=== PATIENT | female | born 1945 | race Caucasian/White ===

== ENCOUNTER 2016-09-13 15:38 | Outpatient (CLI) | payer MEDICARE, OTHER ==
--- NOTE | 2016-09-13 17:58 | XRAY Report ---
EXAMS: 1. Right Foot Radiography 2. Left Foot Radiography EXAM DATE: 09/13/2016 04:11 PM. CLINICAL HISTORY: Progressive bilateral foot pain and edema. COMPARISON: None. TECHNIQUE: 3 views each foot. FINDINGS: Right: Bones: Bones are osteopenic. Slight cortical thickening and irregularity at the proximal aspect of th e second metatarsal which may be from previous old fracture injury. No acute fracture or bone lesions . Small calcaneal enthesophytes. Joints: Normal. No subluxations. Soft Tissues: Normal. No soft tissue swelling. Left: Bones: Bones are osteopenic. Small calcaneal enthesophytes. No acute fracture or bone lesions. Joints: Mild changes at the first interphalangeal and first metatarsophalangeal joints. Soft Tissues: Normal. No soft tissue swelling. IMPRESSION: 1. Osteopenia. 2. Slight cortical thickening and irregularity at the proximal aspect of the right second metatarsal which may be from previous old fracture injury. 3. Small bilateral calcaneal enthesophytes. 4. Mild arthritic changes at the left first interphalangeal and metatarsophalangeal joints. [facility] Referring Provider Line: [phone] SITE ID: [id number]
== END 2016-09-13 15:39 | disposition home or self-care (01) ==
LOC: DI 15:38
PROVIDERS: ATTEND Podiatrist
DX: M19.072 Primary osteoarthritis, left ankle and foot (principal); M19.071 Primary osteoarthritis, right ankle and foot; M77.32 Calcaneal spur, left foot; M77.31 Calcaneal spur, right foot; M85.872 Other specified disorders of bone density and structure, left ankle and foot; M85.871 Other specified disorders of bone density and structure, right ankle and foot

== ENCOUNTER 2017-12-17 14:26 | Outpatient (CLI) | payer MEDICARE, OTHER ==
[2017-12-17 17:28] LABS: BASOPHILS % (AUTO) 0.3 %; EOSINOPHILS % (AUTO) 0.9 %; HGB - HEMOGLOBIN 13.2 g/dL (12.0-16.0); LYMPHOCYTES % (AUTO) 35.3 %; MEAN CORPUSCULAR HEMOGLOBIN 28.6 pg (27.0-31.0); MEAN CORPUSCULAR HGB CONC 33.3 g/dL (32.0-36.0); MEAN CORPUSCULAR VOLUME 85.9 fL (81.0-99.0); MEAN PLATELET VOLUME 7.1 fL (7.9-10.8); MONOCYTES % (AUTO) 11.2 %; NEUTROPHILS % (AUTO) 52.3 %; PLT - PLATELET COUNT 177 10^3/uL (130-450); RED BLOOD COUNT 4.63 10^6/uL (4.20-5.40); RED CELL DISTRIBUTION WIDTH 14.7 % (12.0-15.0)
[2017-12-17 18:03] LABS: ALBUMIN 3.9 g/dL (3.2-5.5); ALBUMIN/GLOBULIN RATIO 1.2 (1.0-2.2); ALKALINE PHOSPHATASE 93 IU/L (42-121); ALT ALANINE AMINOTRANSFERASE 13 IU/L (10-60); AST ASPARTATE AMINOTRANSFERASE 18 IU/L (10-42); BILIRUBIN,TOTAL 0.6 mg/dL (0.2-1.0); BUN - BLOOD UREA NITROGEN 7 mg/dL (6-20); CARBON DIOXIDE - CO2 28 mmol/L (21-32); CHLORIDE 94 mmol/L (101-111); CHOL/HDL RATIO 2.7 (<4.4); CHOLESTEROL 197 mg/dL; CREATININE 0.8 mg/dL (0.4-1.0); GFR - MDRD 71 (>89); GLUCOSE 91 mg/dL (70-100); HDL CHOLESTEROL 74 mg/dL; LDL CHOLESTEROL,CALCULATED 111 mg/dL; LDL/HDL RATIO 1.5 (<4.4); SODIUM 130 mmol/L (135-145); TOTAL PROTEIN 7.1 g/dL (6.7-8.2); VLDL CHOLESTEROL 12 mg/dL
[2017-12-17 18:34] LABS: ABNORMAL LYMPHS % (MANUAL) 0 %; BAND NEUTROPHILS % (MANUAL) 0 %
[2017-12-17 20:08] LABS: LYMPHOCYTES # (MANUAL) 0.7 10^3/uL (1.5-3.5); LYMPHOCYTES % (MANUAL) 33 %; MONOCYTES # (MANUAL) 0.2 10^3/uL (0.0-1.0); NEUTROPHILS # (MANUAL) 1.1 10^3/uL (1.5-6.6); NEUTROPHILS % (MANUAL) 55 %; PLATELET ESTIMATE, MANUAL NORMAL (130-450,000) (NORMAL); PLATELET MORPHOLOGY NORMAL APPEARANCE (NORMAL); RBC MORPHOLOGY (MULTIPLE) NORMAL APPEARANCE (NORMAL)
== END 2017-12-17 14:27 | disposition home or self-care (01) ==
LOC: LAB.F 14:26
PROVIDERS: ATTEND Nurse Practitioner Family
DX: I10 Essential (primary) hypertension (principal); Z13.220 Encounter for screening for lipoid disorders
CPT/HCPCS: 36415; 80053; 80061; 83721; 84443; 85025

== ENCOUNTER 2018-06-28 16:44 | Emergency (ER) | payer MEDICARE, OTHER ==
[2018-06-28] MEDS ORDERED: TRANEXAMIC ACID 1,000 MG/10 ML VIAL NAS STA (18:04)
--- NOTE | 2018-06-28 18:08 | ED Physician Documentation ---
History of Present Illness - Stated complaint Stated Complaint: GLF - Chief complaint Chief Complaint: Trauma Hd/Nk - History obtained from History obtained from: Patient, Family - History of Present Illness Timing: How many hours ago (3) Pain level max: 4 Pain level now: 3 Improved by: nothing Worsened by: palpation - Additonal information Additional information: 72-year-old female presents to the emergency department after a trip and fall in her driveway, landing on her face. Complained of pain to the nose as well as a laceration. No loss of consciousness. Does have a slight headache. No vomiting. Not on blood thinners, but her nose is continuing to bleed. Review of Systems Constitutional: denies: Fever, Chills Respiratory: denies: Cough GI: denies: Nausea, Vomiting, Diarrhea Skin: denies: Rash Musculoskeletal: denies: Neck pain, Back pain Neurologic: denies: Headache PD PAST MEDICAL HISTORY - Past Medical History Past Medical History: Yes Musculoskeletal: Osteoarthritis Other Past Medical History: [place]'s right side - Past Surgical History Past Surgical History: Yes Ortho: Other - Present Medications Home Medications: Ambulatory Orders Medication Instructions Recorded Confirmed Cholecalciferol (Vitamin D3) 1,000 unit PO DAILY 06/28/18 06/28/18 [Vitamin D3] Lisinopril 10 mg PO DAILY 06/28/18 06/28/18 Meloxicam 7.5 mg PO DAILY 06/28/18 06/28/18 Thioridazine HCl 100 mg PO DAILY 06/28/18 06/28/18 oxyCODONE [Roxicodone] 5 mg PO ONCE 06/28/18 06/28/18 - Allergies Allergies/Adverse Reactions: Allergies Allergy/AdvReac Type Severity Reaction Status Date / Time morphine Allergy Hallucinati Verified 06/28/18 16:51 ons - Social History Does the pt smoke?: Yes Smoking Status: Former smoker Does the pt drink ETOH?: No Does the pt have substance abuse?: No - Immunizations Immunizations are current?: Yes Immunizations: TDAP current <10years PD ED PE NORMAL - Vitals Vital signs reviewed: Yes - General General: Alert and oriented X 3, No acute distress, Well developed/nourished - HEENT HEENT: PERRL, Moist mucous membranes, Other (Tender palpation over the bridge of the nose. Bleeding from the right nare. There is a laceration on the bridge of the nose, approximately 1.5 cm) - Neck Neck: Supple, no meningeal sign - Cardiac Cardiac: RRR, Strong equal pulses - Respiratory Respiratory: No respiratory distress, Clear bilaterally - Abdomen Abdomen: Soft, Non tender, Non distended - Derm Derm: Warm and dry - Extremities Extremities: No tenderness to palpate, Normal ROM s pain - Neuro Neuro: Alert and oriented X 3, poultry culler 2-12 intact, No motor deficit, No sensory deficit, Normal speech - Psych Psych: Normal mood, Normal affect Results - Vitals Vitals: Vital Signs - 24 hr 06/28/18 06/28/18 16:47 18:51 Temperature 36.6 C Heart Rate 112 H 65 Respiratory 18 16 Rate Blood Pressure 120/78 154/59 H O2 Saturation 94 96 Oxygen O2 Source Room air - Rads (name of study) Head CT Radiology: Prelim report reviewed, EMP read contemporaneously, See rad report (No acute intracranial abnormality) Maxillofacial CT Radiology: Prelim report reviewed, EMP read contemporaneously, See rad report (Bilateral nasal bone fractures with comminution and displacement/depression, left greater than right. Mildly displaced and overriding nasal bony septal fracture. Nasal/paranasal soft tissue swelling with small foci of subcutaneous gas near and below the nasal bone fractures consistent with laceration. Mild opacification with in the paranasal sinuses) Procedures - Laceration (location) Nasal laceration Length in cm: 1.5 Wound type: Stellate, Into subcut fat, Clean Neurovascular status: Sensory intact Wound Preparation: Irrigated copiously NS, Wound explored, To the base. No: FB identified Skin layer closure: Dermabond Other: Patient tolerated well, No complications, Neurovascular intact, Tetanus UTD Complexity: Simple PD MEDICAL DECISION MAKING - ED course Complexity details: reviewed results, re-evaluated patient, considered differential, d/w patient ED course: 72-year-old female presents after a fall today. She has nasal bone fractures. Bleeding controlled from the nose. Tranexamic acid as well as lidocaine with epinephrine were Atomized in the nose. Laceration repaired after careful cleaning. Warnings of infection and instructions on wound care given at bedside. Also counseled on how to minimize scarring. Patient and family counseled regarding signs and symptoms for which I believe and urgent re- evaluation would be necessary. Patient with good understanding of and agreement to plan and is comfortable going home at this time This document was made in part using voice recognition software. While efforts are made to proofread this document, sound alike and grammatical errors may occur. Departure - Departure Disposition: 01 Home, Self Care Clinical Impression: Nasal bones, closed fracture Qualifiers: Encounter type: initial encounter Qualified Code(s): S02.2XXA - Fracture of nasal bones, initial encounter for closed fracture Nasal laceration Qualifiers: Encounter type: initial encounter Qualified Code(s): S01.21XA - Laceration without foreign body of nose, initial encounter Condition: Good Instructions: ED Head Injury Closed, ED Fx Nose W Lac Skin Glue Follow-Up: SEAN CHANEL MD [Primary Care Provider] - Within 1 week Comments: do not blow your nose for the next 24-48 hours. Return if you worsen. The glue will dissolve on its own. Follow-up with your doctor for further care. Return if you notice redness, swelling or drainage from the wound. Discharge Date/Time: 06/28/18 19:29
--- NOTE | 2018-06-28 19:04 | CT Report ---
Reason: fall, nasal/facial injury Procedure Date: 06/28/2018 Accession Number: [id number] / [id number] Procedure: CT - HEAD WO CPT Code: FULL RESULT: EXAM: CT HEAD EXAM DATE: 06/28/2018 06:26 PM. CLINICAL HISTORY: Fall, nasal/facial injury. COMPARISON: None. TECHNIQUE: Multiaxial CT images were obtained from the foramen magnum to the vertex. Reformats: Sagittal and coronal. IV contrast: None. In accordance with CT protocol optimization, one or more of the following dose reduction techniques were utilized for this exam: automated exposure control, adjustment of mA and/or KV based on patient size, or use of iterative reconstructive technique. FINDINGS: Parenchyma: No intraparenchymal hemorrhage. No evidence of mass, midline shift, or CT findings of acute infarction. Denis-white differentiation is distinct. Extraaxial Spaces: Normal for age. No subdural or epidural collections identified. Ventricles: The ventricles and cortical sulci are within normal range for the patient's age. Sinuses and orbits: Mild opacification with an some partially demonstrated ethmoid air cells bilaterally and some lobulated mixed density within the right sphenoid sinus. Bones: No calvarial fracture is demonstrated. Refer to the maxillofacial CT report from today for additional findings. Other: None. IMPRESSION: 1. No acute intracranial abnormality demonstrated. 2. Refer to the maxillofacial CT report from today for additional findings. [facility]
--- NOTE | 2018-06-28 19:12 | CT Report ---
Reason: fall, nasal/facial injury Procedure Date: 06/28/2018 Accession Number: [id number] / [id number] Procedure: CT - MAXILLOFACIAL WO CPT Code: FULL RESULT: EXAM: CT MAXILLOFACIAL WITHOUT CONTRAST EXAM DATE: 06/28/2018 06:26 PM. CLINICAL HISTORY: Fall, nasal/facial injury. COMPARISONS: None. TECHNIQUE: Thin-section axial images were acquired of the face without contrast. Post-processing: Coronal and sagittal reformats. Other: None. In accordance with CT protocol optimization, one or more of the following dose reduction techniques were utilized for this exam: automated exposure control, adjustment of mA and/or KV based on patient size, or use of iterative reconstructive technique. FINDINGS: Soft Tissue: Nasal/paranasal facial soft tissue swelling demonstrated with some soft tissue gas adjacent to and below the level of the nasal bones compatible with laceration. Orbits: Symmetric and unremarkable. Bones: Bilateral nasal bone fractures with the comminution and displacement/depression, left greater than right. There is a mildly displaced and overlapping fracture of the bony nasal septum. The anterior maxillary spine appears intact. No other definite fractures. Partial demonstration of degenerative disk and degenerative facet disease of the cervical spine. Temporomandibular Joints: Bilateral TMJ degenerative disease. No dislocation. Sinuses: Mild partial opacification of some ethmoid air cells bilaterally. Mild right and minimal left maxillary sinus peripheral soft tissue thickening. Nodular secretions within the anterior right sphenoid sinus. No bethanie sinus layering fluid. Other: None. IMPRESSION: 1. Bilateral nasal bone fractures with comminution and displacement/depression, left greater than right. 2. Mildly displaced and overriding nasal bony septal fracture. 3. Nasal/paranasal soft tissue swelling with small foci of soft tissue gas near and below the nasal bone fractures consistent with laceration. 4. Mild opacification within some paranasal sinuses. [facility]
[2018-06-28 19:17] VITALS: BP 154/59
== END 2018-06-28 19:29 | disposition home or self-care (01) ==
LOC: ED 16:44
DX: S02.2XXA Fracture of nasal bones, initial encounter for closed fracture (principal); S01.21XA Laceration without foreign body of nose, initial encounter; W01.0XXA Fall on same level from slipping, tripping and stumbling without subsequent striking against object, initial encounter; Y93.01 Activity, walking, marching and hiking; Y92.008 Other place in unspecified non-institutional (private) residence as the place of occurrence of the external cause; Z87.891 Personal history of nicotine dependence
CPT/HCPCS: 12011; 70450; 70486; 99283; 99284

== ENCOUNTER 2020-03-17 15:36 | Emergency (ER) | payer MEDICARE, OTHER ==
--- NOTE | 2020-03-17 15:54 | ED Physician Documentation ---
PD HPI URI - Stated complaint Stated Complaint: SOA/SHAKES/FEVER - Chief complaint Chief Complaint: General - History obtained from History obtained from: Patient - History of Present Illness Timing - onset: Yesterday Timing details: Abrupt onset, Still present Associated symptoms: Fever, Chills, Nasal congestion, Other (dysuria). No: Sore throat, Dry cough, Hemoptysis, Dyspnea Contributing factors: No: Sick contact, Immunocompromised, COPD / asthma Similar symptoms before: Has not had sx before Recently seen: Clinic (seen at [facility] today and referred to ER for further testing.) Review of Systems Constitutional: reports: Fever (since yesterday), Chills, Myalgias Nose: reports: Congestion. denies: Rhinorrhea / runny nose Throat: denies: Sore throat Cardiac: denies: Chest pain / pressure Respiratory: denies: Dyspnea, Cough GI: denies: Nausea, Vomiting, Diarrhea : reports: Dysuria (for couple days), Frequency Skin: denies: Rash Neurologic: reports: Generalized weakness. denies: Near syncope, Confused, Altered mental status, Headache PD PAST MEDICAL HISTORY - Past Medical History Cardiovascular: None Respiratory: None Neuro: None Endocrine/Autoimmune: None Musculoskeletal: Osteoarthritis - Past Surgical History Past Surgical History: Yes Ortho: Other - Present Medications Home Medications: Ambulatory Orders Medication Instructions Recorded Confirmed Cholecalciferol (Vitamin D3) 1,000 unit PO DAILY 06/28/18 06/28/18 [Vitamin D3] Meloxicam 7.5 mg PO DAILY 06/28/18 06/28/18 Thioridazine HCl 100 mg PO DAILY 06/28/18 06/28/18 lisinopriL [Lisinopril] 10 mg PO DAILY 06/28/18 06/28/18 oxyCODONE [Roxicodone] 5 mg PO ONCE 06/28/18 06/28/18 Cephalexin [Keflex] 500 mg PO Q6H #28 capsule 03/17/20 Potassium Chloride 10 meq PO DAILY #15 tablet.er 03/17/20 - Allergies Allergies/Adverse Reactions: Allergies Allergy/AdvReac Type Severity Reaction Status Date / Time morphine Allergy Hallucinati Verified 03/17/20 15:47 ons - Living Situation Living Situation: reports: Alone Living Arrangement: reports: Assisted living - Social History Does the pt smoke?: Yes Smoking Status: Former smoker Does the pt drink ETOH?: No Does the pt have substance abuse?: No - Immunizations Immunizations are current?: Yes Immunizations: TDAP current <10years PD ED PE NORMAL - Vitals Vital signs reviewed: Yes (febrile and mild tachycardia) - General General: Alert and oriented X 3, No acute distress, Well developed/nourished - HEENT HEENT: Ears normal, Moist mucous membranes, Pharynx benign - Neck Neck: Supple, no meningeal sign, No adenopathy - Cardiac Cardiac: RRR, No murmur - Respiratory Respiratory: Clear bilaterally - Abdomen Abdomen: Soft, Non tender, No organomegaly - Female Female : Deferred - Rectal Rectal: Deferred - Back Back: Other (mild left CVA tenderness) - Derm Derm: Normal color, Warm and dry - Extremities Extremities: No edema, No calf tenderness / cord - Neuro Neuro: Alert and oriented X 3, No motor deficit, Normal speech Results - Vitals Vitals: Vital Signs - 24 hr 03/17/20 03/17/20 03/17/20 15:41 16:39 18:02 Temperature 39.1 C H 37.1 C Heart Rate 114 H 80 85 Respiratory 19 18 18 Rate Blood Pressure 126/58 L 117/93 H 132/62 H O2 Saturation 95 95 95 Oxygen O2 Source Room air - Labs Labs: Laboratory Tests 03/17/20 03/17/20 03/17/20 16:17 16:17 16:17 WBC 6.4 RBC 4.53 Hgb 12.6 Hct 39.3 MCV 86.8 MCH 27.8 MCHC 32.1 RDW 13.7 Plt Count 192 MPV 8.6 Neut # (Auto) Not Reportable Lymph # (Auto) Not Reportable Talbot # (Auto) Not Reportable Eos # (Auto) Not Reportable Baso # (Auto) Not Reportable Absolute Nucleated RBC Not Reportable Total Counted 100 Band Neuts % (Manual) 10 Reactive Lymphs % (Man) 1 Abnorm Lymph % (Manual) 0 Nucleated RBC % Not Reportable Neutrophils # (Manual) 5.3 Lymphocytes # (Manual) 0.1 L Monocytes # (Manual) 1.0 Eosinophils # (Manual) 0.0 Basophils # (Manual) 0.0 Differential Comment MANUAL DIFFERENTIAL Platelet Estimate NORMAL (130-450,000) Platelet Morphology NORMAL APPEARANCE RBC Morph Micro Appear NORMAL APPEARANCE Sodium 125 L Potassium 4.3 Chloride 91 L Carbon Dioxide 24 Anion Gap 10.0 BUN 17 Creatinine 1.1 H Estimated GFR (MDRD) 49 L Glucose 153 H Lactic Acid 0.9 Calcium 9.0 Total Bilirubin 0.9 AST 16 ALT 15 Alkaline Phosphatase 78 Total Protein 6.9 Albumin 3.6 Globulin 3.3 Albumin/Globulin Ratio 1.1 Urine Color Urine Clarity Urine pH Ur Specific [place] Urine Protein Urine Glucose (UA) Urine Ketones Urine Occult Blood Urine Nitrite Urine Bilirubin Urine Urobilinogen Ur Leukocyte Esterase Urine RBC Urine WBC Ur Squamous Epith Cells Urine Bacteria Urine Culture Comments Nasal Adenovirus (PCR) Nasal B. parapertussis DNA (PCR) Nasal Coronavir 229E PCR Nasal Coronavir HKU1 PCR Nasal Coronavir NL63 PCR Nasal Coronavir OC43 PCR Nasal Enterovir/Rhinovir PCR Nasal Influenza B PCR Nasal Influenza A PCR Nasal Parainfluen 1 PCR Nasal Parainfluen 2 PCR Nasal Parainfluen 3 PCR Nasal Parainfluen 4 PCR Nasal RSV (PCR) Nasal B.pertussis DNA PCR Nasal C.pneumoniae (PCR) Shar Human Metapneumo PCR Nasal M.pneumoniae (PCR) Nasal SARS-CoV-2 (PCR) 03/17/20 03/17/20 16:40 16:50 WBC RBC Hgb Hct MCV MCH MCHC RDW Plt Count MPV Neut # (Auto) Lymph # (Auto) [place]bot # (Auto) Eos # (Auto) Baso # (Auto) Absolute Nucleated RBC Total Counted Band Neuts % (Manual) Reactive Lymphs % (Man) Abnorm Lymph % (Manual) Nucleated RBC % Neutrophils # (Manual) Lymphocytes # (Manual) Monocytes # (Manual) Eosinophils # (Manual) Basophils # (Manual) Differential Comment Platelet Estimate Platelet Morphology RBC Morph Micro Appear Sodium Potassium Chloride Carbon Dioxide Anion Gap BUN Creatinine Estimated GFR (MDRD) Glucose Lactic Acid Calcium Total Bilirubin AST ALT Alkaline Phosphatase Total Protein Albumin Globulin Albumin/Globulin Ratio Urine Color YELLOW Urine Clarity CLEAR Urine pH 6.0 Ur Specific [place] 1.025 Urine Protein 100 H Urine Glucose (UA) NEGATIVE Urine Ketones TRACE Urine Occult Blood MODERATE H Urine Nitrite POSITIVE H Urine Bilirubin NEGATIVE Urine Urobilinogen 0.2 (NORMAL) Ur Leukocyte Esterase SMALL H Urine RBC 6-10 H Urine WBC >25 H Ur Squamous Epith Cells RARE Squamous Urine Bacteria Moderate H Urine Culture Comments INDICATED Nasal Adenovirus (PCR) NOT DETECTED Nasal B. parapertussis DNA (PCR) NOT DETECTED Nasal Coronavir 229E PCR NOT DETECTED Nasal Coronavir HKU1 PCR NOT DETECTED Nasal Coronavir NL63 PCR NOT DETECTED Nasal Coronavir OC43 PCR NOT DETECTED Nasal Enterovir/Rhinovir PCR NOT DETECTED Nasal Influenza B PCR NOT DETECTED Nasal Influenza A PCR NOT DETECTED Nasal Parainfluen 1 PCR NOT DETECTED Nasal Parainfluen 2 PCR NOT DETECTED Nasal Parainfluen 3 PCR NOT DETECTED Nasal Parainfluen 4 PCR NOT DETECTED Nasal RSV (PCR) NOT DETECTED Nasal B.pertussis DNA PCR NOT DETECTED Nasal C.pneumoniae (PCR) NOT DETECTED Shar Human Metapneumo PCR NOT DETECTED Nasal M.pneumoniae (PCR) NOT DETECTED Nasal SARS-CoV-2 (PCR) NOT DETECTED - Rads (name of study) chest xray Radiology: Prelim report reviewed (no infiltrates, no acute process), See rad report PD MEDICAL DECISION MAKING - ED course Complexity details: reviewed results (Tachycardic but blood pressure was good. Her fever came down and heart rate improved with some fluids and Tylenol. She does not look septic. Her white count and lactate are normal. Urinalysis is positive for UTI. Chest x-ray is clear. Awaiting viral panel at this time. She is anxious for d/c.), re-evaluated patient (does not appear septic. ), considered differential (Feels in general weakness yesterday into today. She does have some urinary symptoms. No cough per se. We can get a chest x-ray and test for viral panel. Otherwise we will check labs and), d/w patient Departure - Departure Disposition: 01 Home, Self Care Clinical Impression: Generalized weakness Fever Qualifiers: Fever type: unspecified Qualified Code(s): R50.9 - Fever, unspecified UTI (urinary tract infection) Qualifiers: Urinary tract infection type: acute cystitis Hematuria presence: without hematuria Qualified Code(s): N30.00 - Acute cystitis without hematuria Condition: Stable Record reviewed to determine appropriate education?: Yes Instructions: ED UTI Cystitis Female Follow-Up: [facility] [Provider Group] Prescriptions: Cephalexin [Keflex] 500 mg PO Q6H #28 capsule Potassium Chloride 10 meq PO DAILY #15 tablet.er Comments: Stay well-hydrated. Your potassium is a little bit low so a potassium supple ment and sports drinks are good. Your urine sample does show signs of infection and I think that is the primary cause of your feeling ill. Cephalexin 4 times a day for a week for that. Consider Tylenol regularly every 4-6 hours for the next day or 2 to reduce temperature elevations and aches. After that you can start taking just as needed. Recheck if not improving well over the next couple of days and return if worsening. Your respiratory panel at this point is still pending to evaluate for viral illnesses as well. Discharge Date/Time: 03/17/20 18:09
[2020-03-17] MEDS ORDERED: SODIUM CHLORIDE 0.9% 1,837.05 ML IV STA (16:09)
[2020-03-17] MEDS ORDERED: ACETAMINOPHEN 325 MG TABLET PO STA (16:10)
[2020-03-17] MEDS ORDERED: KETOROLAC 15 MG/ML VIAL IVP STA (16:10)
[2020-03-17 16:44] LABS: RED CELL DISTRIBUTION WIDTH 13.7 % (12.0-15.0)
[2020-03-17 16:48] LABS: ALBUMIN 3.6 g/dL (3.2-5.5); ALBUMIN/GLOBULIN RATIO 1.1 (1.0-2.2); BILIRUBIN,TOTAL 0.9 mg/dL (0.2-1.0); CREATININE 1.1 mg/dL (0.4-1.0); TOTAL PROTEIN 6.9 g/dL (6.7-8.2)
--- NOTE | 2020-03-17 16:54 | XRAY Report ---
PROCEDURE: Chest 1 View X-Ray INDICATIONS: chest pain TECHNIQUE: One view of the chest was acquired. COMPARISON: None FINDINGS: Surgical changes and devices: Right scapula fixation hardware. Lungs and pleura: No pleural effusions or pneumothorax. Lungs are clear. Mediastinum: Mediastinal contours appear normal. Heart size is normal. Bones and chest wall: No suspicious bony lesions. Deformity of the right humeral head and right chava oid likely related to remote trauma. Overlying soft tissues appear unremarkable. IMPRESSION: No acute cardiopulmonary disease process. Reviewed by: Aurora Tejeda MD, PhD on 03/17/2020 4:53 PM [facility] Approved by: Auorra Tejeda MD, PhD on 03/17/2020 4:53 PM [facility] Station ID: [id number]
[2020-03-17 16:56] LABS: BASOPHILS % (AUTO) 0.2 %; EOSINOPHILS % (AUTO) 2.5 %; HGB - HEMOGLOBIN 12.6 g/dL (12.0-16.0); LYMPHOCYTES % (AUTO) 4.4 %; MEAN CORPUSCULAR HEMOGLOBIN 27.8 pg (27.0-31.0); MEAN CORPUSCULAR HGB CONC 32.1 g/dL (32.0-36.0); MEAN CORPUSCULAR VOLUME 86.8 fL (81.0-99.0); MEAN PLATELET VOLUME 8.6 fL (7.9-10.8); MONOCYTES % (AUTO) 11.5 %; NEUTROPHILS % (AUTO) 80.6 %; PLT - PLATELET COUNT 192 10^3/uL (130-450); RED BLOOD COUNT 4.53 10^6/uL (4.20-5.40); WHITE BLOOD COUNT 6.4 x10^3/uL (4.8-10.8)
[2020-03-17 17:00] LABS: ABNORMAL LYMPHS % (MANUAL) 0 %; LYMPHOCYTES % (MANUAL) 0 %
[2020-03-17 17:07] LABS: GLUCOSE, URINE (UA) NEGATIVE (NEGATIVE); KETONES,URINE (UA) TRACE mg/dL (NEGATIVE); LEUKOCYTE ESTERASE, URINE SMALL (NEGATIVE); NITRITE,URINE POSITIVE (NEGATIVE); OCCULT BLOOD,URINE MODERATE (NEGATIVE); PROTEIN,URINE 100 mg/dL (NEGATIVE); UROBILINOGEN,URINE 0.2 (NORMAL) E.U./dL (NORMAL)
[2020-03-17 17:08] LABS: CLARITY,URINE CLEAR (CLEAR)
[2020-03-17] MEDS ORDERED: cefTRIAXone 1 GM VIAL IVP STA (17:09)
[2020-03-17 17:10] LABS: ICTOTEST,URINE NEGATIVE
[2020-03-17 17:11] LABS: BILIRUBIN,URINE NEGATIVE (NEGATIVE)
[2020-03-17 17:28] LABS: BACTERIA,URINE Moderate /HPF (None Seen); SQUAMOUS EPITHELIAL CELL,UR RARE Squamous (<= Few)
[2020-03-17 17:34] LABS: BAND NEUTROPHILS % (MANUAL) 10 %; DIFFERENTIAL COMMENT MANUAL DIFFERENTIAL; LYMPHOCYTES # (MANUAL) 0.1 10^3/uL (1.5-3.5); PLATELET ESTIMATE, MANUAL NORMAL (130-450,000) (NORMAL); PLATELET MORPHOLOGY NORMAL APPEARANCE (NORMAL); RBC MORPHOLOGY (MULTIPLE) NORMAL APPEARANCE (NORMAL)
[2020-03-17 17:38] LABS: C. PNEUMONIAE- RESP PCR PANEL NOT DETECTED
[2020-03-17 18:03] VITALS: BP 132/62
== END 2020-03-17 18:09 | disposition home or self-care (01) ==
LOC: ED 15:36
DX: N30.00 Acute cystitis without hematuria (principal); R53.1 Weakness; R00.0 Tachycardia, unspecified; Z20.828 Contact with and (suspected) exposure to other viral communicable diseases; Z87.891 Personal history of nicotine dependence
CPT/HCPCS: 36415; 71045; 80053; 81001; 83605; 85025; 87040; 87086; 87181; 87631; 96374; 96375; 99283; 99284; A9270; 0202U